=== PATIENT | female | born 1990 | race Caucasian/White ===

== ENCOUNTER → 2017-07-17 | Outpatient (CLI) | payer OTHER ==
[2017-07-17 17:28] LABS: ABSOLUTE BASOPHILS # (AUTO) 0.1 10^3/uL (0.0-0.2); ABSOLUTE EOSINOPHILS # (AUTO) 0.3 10^3/uL (0.0-0.6); ABSOLUTE LYMPHOCYTES (AUTO) 3.5 10^3/uL (0.5-4.7); ABSOLUTE MONOCYTES (AUTO) 0.5 10^3/uL (0.1-1.4); ABSOLUTE NEUT (AUTO) 3.3 10^3/uL (1.7-8.2); EOSINOPHILS % (AUTO) 3.7 % (0-6); HEMATOCRIT 38.4 % (36.0-47.0); HGB HCT DIFFERENCE 0.6; MEAN CORPUSCULAR HEMOGLOBIN 30.3 pg (27.0-33.4); MEAN CORPUSCULAR HGB CONC 33.8 g/dL (32.0-36.0); MEAN CORPUSCULAR VOLUME 90 fl (80-97); MONOCYTES % (AUTO) 6.1 % (3-13); RED BLOOD COUNT 4.28 10^6/uL (3.72-5.28); RED CELL DISTRIBUTION WIDTH 12.2 % (11.5-14.0); SEGMENTED NEUTROPHILS % (AUTO) 43.2 % (42-78); WHITE BLOOD COUNT 7.7 10^3/uL (4.0-10.5)
== END ==
LOC: OD 16:14
PROVIDERS: ATTEND Internal Medicine Pulmonary Disease
DX: J45.909 Unspecified asthma, uncomplicated (principal)
CPT/HCPCS: 36415; 82785; 85025

== ENCOUNTER 2017-10-21 19:51 | Emergency (ER) | payer OTHER ==
[2017-10-21] MEDS ORDERED: NORMAL SALINE 1000 ML 1,000 ML IV ONE ×2 (20:49→23:45)
[2017-10-21 21:27] LABS: ABSOLUTE BASOPHILS # (AUTO) 0.1 10^3/uL (0.0-0.2); ABSOLUTE EOSINOPHILS # (AUTO) 0.1 10^3/uL (0.0-0.6); ABSOLUTE MONOCYTES (AUTO) 0.7 10^3/uL (0.1-1.4); ABSOLUTE NEUT (AUTO) 6.3 10^3/uL (1.7-8.2); BASOPHILS % (AUTO) 0.5 % (0-2); EOSINOPHILS % (AUTO) 1.2 % (0-6); HEMATOCRIT 37.3 % (36.0-47.0); HEMOGLOBIN 12.3 g/dL (12.0-15.5); LYMPHOCYTES % (AUTO) 36.1 % (13-45); MEAN CORPUSCULAR HEMOGLOBIN 30.2 pg (27.0-33.4); MEAN CORPUSCULAR HGB CONC 32.9 g/dL (32.0-36.0); MEAN CORPUSCULAR VOLUME 92 fl (80-97); MONOCYTES % (AUTO) 6.1 % (3-13); PLATELET COUNT 308 10^3/uL (150-450); RED BLOOD COUNT 4.06 10^6/uL (3.72-5.28); RED CELL DISTRIBUTION WIDTH 13.3 % (11.5-14.0); SEGMENTED NEUTROPHILS % (AUTO) 56.1 % (42-78); TOTAL CELLS COUNTED % (AUTO) 100 %; WHITE BLOOD COUNT 11.2 10^3/uL (4.0-10.5)
[2017-10-21 21:40] LABS: INTERNATIONAL RATION (INR) 0.88; PROTHROMBIN TIME 12.5 SEC (11.4-15.4); VENOUS BLOOD BASE EXCESS 4.4 mmol/L; VENOUS BLOOD HCO3 28.7 mmol/L (20-32); VENOUS BLOOD PCO2 41.5 mmHg (35-63); VENOUS BLOOD PH 7.46 (7.30-7.42)
[2017-10-21 21:40] LABS: APPEARANCE,URINE CLEAR; BILIRUBIN,URINE NEGATIVE (NEGATIVE); COLOR,URINE STRAW; GLUCOSE, URINE NEGATIVE (NEGATIVE); KETONES,URINE NEGATIVE (NEGATIVE); LEUKOCYTE ESTERASE,URINE NEGATIVE (NEGATIVE); NITRITE,URINE NEGATIVE (NEGATIVE); PROTEIN,URINE NEGATIVE (NEGATIVE); URINE SPECIFIC GRAVITY 1.005; UROBILINOGEN,URINE NEGATIVE mg/dL (<2.0)
[2017-10-21 21:50] LABS: ALANINE AMINOTRANSFERASE 18 U/L (9-52); ALBUMIN 4.6 g/dL (3.5-5.0); ALKALINE PHOSPHATASE 58 U/L (38-126); ANION GAP 11 (5-19); ASPARTATE AMINO TRANSFERASE 20 U/L (14-36); BILIRUBIN,DIRECT 0.2 mg/dL (0.0-0.4); BILIRUBIN,TOTAL 0.2 mg/dL (0.2-1.3); BLOOD UREA NITROGEN 6 mg/dL (7-20); CALCIUM 9.6 mg/dL (8.4-10.2); CARBON DIOXIDE 29 mmol/L (22-30); CHLORIDE 99 mmol/L (98-107); GLUCOSE 97 mg/dL (75-110); SODIUM 138.7 mmol/L (137-145)
--- NOTE | 2017-10-21 22:00 | ER Document Report ---
ED General - General Chief Complaint: Flank Pain Stated Complaint: NAUSEA,VOMITING,KIDNEY PAIN Time Seen by Provider: 10/21/17 20:50 Notes: Patient is a 27-year-old female presents emergency department complaining of acute on chronic left flank pain is gotten worse since Thursday with associated nausea, vomiting, difficulty urinating, pyuria, dysuria and fever since Thursday. Patient states that she was diagnosed with pyelonephritis back in May and since then has been having chronic left flank pain. She followed up with the urologist on September [address] She followed up with him on October 14 complaining of she is having bladder fullness so they started her on Cipro and Flomax and told her that she has multiple stones in her right kidney and her left kidney. Patient has a substantial past medical history with ulcerative colitis, history of paroxysmal SVT, history of migraines, asthma, fibromyalgia, chronic back pain with spondylo-listhesis and radiculopathy, anxiety, depression, ADD Her urologist is with [facility] with Dr. Nely no primary care is with Dr. Ayala TRAVEL OUTSIDE OF THE [place] IN LAST 30 DAYS: No - Related Data Allergies/Adverse Reactions: ibuprofen [Ibuprofen] Allergy (Verified 08/20/17 09:14) Unknown reaction Penicillins Allergy (Verified 08/20/17 09:14) UNKNOWN metronidazole [From Flagyl] Adverse Reaction (Verified 08/20/17 09:14) Metronidazole HCl [From Flagyl] Adverse Reaction (Verified 08/20/17 09:14) Past Medical History - Social History Smoking Status: Unknown if Ever Smoked Family History: Reviewed & Not Pertinent Patient has suicidal ideation: No Patient has homicidal ideation: No - Past Medical History Cardiac Medical History: Reports: Hx Hypertension Denies: Hx Heart Attack Pulmonary Medical History: Reports: Hx Asthma - IN PAST NO PROBLEMS IN COUPLE OF YEARS PER PT Neurological Medical History: Reports: Hx Migraine. Denies: Hx Cerebrovascular Accident, Hx Seizures Renal/ Medical History: Denies: Hx Peritoneal Dialysis GI Medical History: Reports: Hx Ulcerative Colitis - Diagnostic data 16. Denies : Hx Hepatitis, Hx Hiatal Hernia, Hx Ulcer Psychiatric Medical History: Reports: Hx Attention Deficit Hyperactivity Disorder Infectious Medical History: Denies: Hx Hepatitis Past Surgical History: Reports: Hx Cardiac Surgery - ablasion. Denies: Hx Hysterectomy, Hx Mastectomy, Hx Open Heart Surgery, Hx Pacemaker Review of Systems - Review of Systems Constitutional: See HPI EENT: No symptoms reported Cardiovascular: No symptoms reported Respiratory: No symptoms reported Gastrointestinal: See HPI Genitourinary: See HPI Musculoskeletal: See HPI -: Yes All other systems reviewed and negative Physical Exam - Vital signs Vitals: Temp Pulse Resp BP Pulse Ox 98.6 F 114 H 20 138/64 H 99 10/21/17 19:52 10/21/17 19:52 10/21/17 19:52 10/21/17 19:52 10/21/17 19:52 - Notes Notes: PHYSICAL EXAM GENERAL: Alert, interacts well. LUNGS: Clear to auscultation bilaterally, no wheezes, rales, or rhonchi. No respiratory distress. HEART: Regular rate and rhythm. No murmurs, gallops, or rubs. ABDOMEN: Soft, nondistended, moderate discomfort to palpation the left lower quadrant. No guarding, rebound, or rigidity.. Bowel sounds present in all 4 quadrants. EXTREMITIES: Moves all 4 extremities spontaneously. No edema, radial and dorsalis pedis pulses 2/4 bilaterally. No cyanosis. Back: Significant CVA tenderness on the left. NEUROLOGICAL: Alert and oriented x4. Normal speech. PSYCH: Normal affect, normal mood. SKIN: Warm, dry, normal turgor. No rashes or lesions noted. Course - Re-evaluation Re-evalutation: 10/22/17 00:09 Patient is a 27-year-old female is hemodynamically stable, no acute distress and afebrile. Initial tachycardia is resolved after IV fluids. No evidence of leukocytosis or anemia. Chemistry stable without elevation in renal function. Urinalysis clean. CT the abdomen pelvis shows a 4 mm stone in the left kidney but evidence of a possible ureteral stone versus phlebolith in the left pelvis. Results discussed with urologist industrial relations director Dr. Gandhi who states he will follow -up with her in the morning in clinic keep her n.p.o. send a urine culture. Discussed results with patient is tolerating p.o. and feeling much better after pain medications here. She is declining any additional IV fluids as her home Flomax and home pain medications. Will discharge her home with Zofran and contact information to follow-up with Dr. Gandhi in the morning. Patient given strict return precautions and otherwise is stable for discharge - Vital Signs Vital signs: Temp Pulse Resp BP Pulse Ox 98.2 F 96 20 110/69 100 10/22/17 00:53 10/22/17 00:53 10/22/17 00:53 10/22/17 00:53 10/22/17 00:53 - Laboratory Result Diagrams: 10/21/17 21:00 10/21/17 21:00 Laboratory results interpreted by me: 10/21/17 10/21/17 10/21/17 21:00 21:00 21:00 WBC 11.2 H VBG pH 7.46 H BUN 6 L Creatinine 0.46 L - Diagnostic Test Radiology reviewed: Image reviewed, Reports reviewed Discharge - Discharge Clinical Impression: Kidney stones Condition: Good Disposition: HOME, SELF-CARE Additional Instructions: KIDNEY STONE: You are passing or have passed a kidney stone. These stones are usually due to increased calcium or uric acid concentrations in your urine. Stones within the kidney itself are not painful. The pain occurs as the stone leaves the kidney to pass down the long tube, called the ureter, leading to the bladder. If the stone is small, it will usually pass by itself. Most patients can pass the stone at home. You will usually receive medications for pain, nausea or vomiting, and sometimes a medication to assist in passing the kidney stone. However, if the pain is very severe or if vomiting prevents you from taking oral pain medications, you may need to return for further treatment. Drink three or four quarts of fluids per day. You will be given pain medication (if needed) and urine strainers. Strain all your urine to see if the stone passes. If your doctor has asked you to bring the stone in for analysis, return with the stone once it has passed. Return if pain or vomiting become severe, if you develop a high fever, if you are unable to pass your urine, or if other unusual symptoms occur. PAIN MEDICATION INJECTION: You have received an injection of a pain medication. You should experience significant pain relief within 45 minutes. This drug is a narcotic - - it will impair your judgement, slow your reaction time and make you sleepy ( as well as relieve your pain). Narcotics also can cause nausea. You should not drive, work with machinery, or perform any task requiring mental alertness until all effects of the medication are gone -- six to eight hours. Do not take any alcohol, or sedatives, and do not take any other medication without checking with your physician. ANTINAUSEA MEDICATION: You have been given a medication to suppress nausea and vomiting. This type of medication can be given as a shot, pill, or suppository. It will usually last for many hours. Pills and shots usually last six to eight hours, suppositories last about 12 hours. For the typical illness, only one or two doses of the medication may be necessary. Mild lightheadedness may occur. This type of medicine can cause drowsiness. Do not drive or operate dangerous machinery while under its influence. Do not mix with alcohol. See your doctor at once if you have muscle spasms or tightness, or uncontrollable motions (particularly of the neck, mouth, or jaw). Persistent vomiting or severe lightheadedness should also be evaluated by the physician. FLOMAX (tamsulosin): Flomax is a medicine that shrinks the prostate gland. It helps relieve symptoms of benign prostatic hypertrophy, such as frequent urination, weak stream, and inadequate emptying. It has been shown to dilate the ureter (tube leading from the kidney to the bladder) and help in passing kidney stones Flomax usually causes no side effects. You may notice slight tiredness and dizziness for a few days. Some patients develop nasal congestion. Rarely, impotence can occur. If the symptoms are bothersome and don't improve with continued use, call your doctor. Contact your doctor or return if you have fainting spells, severe weakness or dizziness, shortness of breath, or rash. FOLLOW-UP CARE: If you have been referred to a physician for follow-up care, call the physician s office for an appointment as you were instructed or within the next two days. If you experience worsening or a significant change in your symptoms, notify the physician immediately or return to the Emergency Department at any time for re-evaluation. Prescriptions: Ondansetron [Zofran Odt 4 mg Tablet] 1 - 2 tab PO Q4H PRN #15 tab.rapdis PRN Reason: For Nausea/Vomiting Referrals: NHUNG AYALA MD [Primary Care Provider] - Follow up as needed BRANT GANDHI II, MD [[facility]] - Follow up tomorrow (at 8am)
[2017-10-21] MEDS ORDERED: MORPHINE SULFATE 10 MG/ML INJ IV ONE (23:08)
--- NOTE | 2017-10-21 23:29 | RADIOLOGY REPORT (SQ) ---
EXAM DESCRIPTION: CT LTD RENAL STONE PROTOCOL ON COMPLETED DATE/TIME: 10/21/2017 10:45 pm REASON FOR STUDY: left flank pain, fever, h/o multiple stones COMPARISON: None. TECHNIQUE: CT scan of the abdomen and pelvis performed without intravenous or oral contrast. Images reviewed with lung, soft tissue, and bone windows. Reconstructed coronal and sagittal MPR images revi ewed. All images stored on PACS. All CT scanners at this facility use dose modulation, iterative reconstruction, and/or weight based d osing when appropriate to reduce radiation dose to as low as reasonably achievable (ALARA). [facility]: Dose Right [facility]: CareDose [facility]: Dose Right [facility]: Teradose 4D [facility]: Smart ComQi RADIATION DOSE: CT Rad equipment meets quality standard of care and radiation dose reduction techniq ues were employed. CTDIvol: 6.9 mGy. DLP: 340 mGy-cm.mGy. LIMITATIONS: None. FINDINGS: LOWER CHEST: No consolidation or pleural effusion. NON-CONTRASTED LIVER, SPLEEN, ADRENALS: Evaluation limited by lack of IV contrast. No identified sign ificant masses. PANCREAS: No peripancreatic inflammatory changes. GALLBLADDER: No identified stones by CT criteria. No inflammatory changes to suggest cholecystitis. RIGHT KIDNEY AND URETER: No significant calcifications. No hydronephrosis or hydroureter. LEFT KIDNEY AND URETER: Nonobstructing renal calculi measuring up to 4 mm. No hydronephrosis or hyd roureter. AORTA AND RETROPERITONEUM: No abdominal aortic aneurysm. No retroperitoneal masses or adenopathy. BOWEL AND PERITONEAL CAVITY: No dilated bowel loops or inflammatory changes. No free fluid. APPENDIX: Normal. PELVIS, BLADDER, AND ABDOMINAL WALL:The urinary bladder is distended. The uterus is present. There is a 2.6 cm cyst at the left ovary. No free fluid. Radiopaque ring is seen in the abdominal wall nielsen perior to the umbilicus. BONES: Bilateral pars defect at L5 with mild anterolisthesis of L5 on S1. IMPRESSION: Nonobstructing left nephrolithiasis. No hydronephrosis. Distended urinary bladder. 2.6 cm cyst at the left ovary. COMMENT: Quality ID # [id number]: Final reports with documentation of one or more dose reduction techniques (e.g., Automated exposure control, adjustment of the mA and/or kV according to patient size, use of iterative reconstruction technique) TECHNICAL DOCUMENTATION: JOB ID: [id number] [place]-[id number] 2010 [employer]- All Rights Reserved
[2017-10-21] MEDS ORDERED: ONDANSETRON HCL INJ/PF 4 MG/2 ML SDV IV ONE (23:36)
[2017-10-22 00:53] VITALS: BP 110/69
--- NOTE | 2017-10-22 07:48 | EKG REPORT ---
SEVERITY:- NORMAL ECG - SINUS RHYTHM : Confirmed by: Cristhian Durán MD 22-Oct-2017 07:48:08
== END 2017-10-22 00:54 | disposition home or self-care (01) ==
LOC: ER 19:51
DX: N20.0 Calculus of kidney (principal); R11.2 Nausea with vomiting, unspecified; I10 Essential (primary) hypertension; J45.909 Unspecified asthma, uncomplicated; Z88.0 Allergy status to penicillin; Z88.6 Allergy status to analgesic agent
CPT/HCPCS: 93005; 99285; 96361; 96374; 96375; 36415; 87040; 87086; 82962; 84703; 85025; 85610; 80053; 81001; 82803; 83605; 76380; 93010; J2270; J2405; J7030

== ENCOUNTER → 2018-01-12 | Outpatient (CLI) | payer OTHER ==
--- NOTE | 2018-01-12 09:01 | RADIOLOGY REPORT (SQ) ---
EXAM DESCRIPTION: COOKIE SWALLOW COMPLETED DATE/TIME: 01/12/2018 8:35 am REASON FOR STUDY: DYSPHAGIA CAUSING PULMONARY ASPIRATION W/SWALLOWING (R13.19) R13.19 OTHER DYSPHAG IA COMPARISON: None. TECHNIQUE: Videofluoroscopic swallowing examination was performed in conjunction with speech patholo gy. Videofluoroscopic imaging was obtained and reviewed and these are the findings: RADIATION DOSE: Fluoro time 1.28 minutes 1 images saved to PACS. LIMITATIONS: None FINDINGS: The patient was brought into the fluoro room and placed upright on a modified barium swall ow chair. The patient was then given multiple consistencies mixed with barium to swallow under live fluoroscopic video guidance. According to the Speech Pathologist there was no penetration or aspirat ion. Please refer to the speech pathology report for further details. IMPRESSION: NO EVIDENCE OF PENETRATION OR ASPIRATION.PLEASE SEE SPEECH PATHOLOGIST REPORT FOR OTHER FINDINGS AND RECOMMENDATIONS. COMMENT: None Quality ID [id number]: Final reports for procedures using fluoroscopy that document radiation exposure [place], or exposure time and number of fluorographic images (if radiation exposure indices are not avail able) TECHNICAL DOCUMENTATION: JOB ID: [id number] [employer]- All Rights Reserved Reading location - IP/workstation name: [email or web address]
--- NOTE | 2018-01-12 11:20 | ST Modified Barium Swallow ---
Recommendation - Recommendations Recommendations: No diet change recommendations, functional oral and pharyngeal swallowing skills for normal diet textures. Due to nature of globus sensation without pharyngeal residue present, may benefit from consult with sustain engineer. Medical Diagnoses - Medical Diagnoses Medical Diagnosis Description & ICD-10 Code(s): dysphagia R13.19, dysphagia R13.10 Other Medical Diagnoses/Co-Morbidities: per patient report: asthma, reflux, ulcerative colitis, gastritis, migraines, spinal disorders, heart problems. Patient stated that she had other health issues as well, but was unable to name all. ST Modified Barium Swallow - General Date: 01/12/18 Referring Physician: Dr. Navarrete Risks/Precautions: None Reason for Referral: rule out aspiration - History History obtained from: Patient -: Medical - The patient acted as her own historian this day. She stated that "for a while", she has been noticing feeling "choked" when eating, specifically notes difficulty with solids. She does say that she has dry mouth, possibly due to medications she is taking, and states that she has reflux but does not take medications for this. No recent pneumonia or weight loss reported. Medications: Patient listed medications, was unsure if she listed all: lyrica, gabapentin, diltiazem, nucynta, flovent, ventalin, spiriva Allergies: per patient report: ibuprofen, penicillin, strawberries, seafood - Functional Status Prior Functional Status: INDEPENDENT: feeding - independent Current Functional Limitations: feeding - globus sensation - Subjective Patient/caregiver goal(s): safe swallow Cognitive-Linguistic Function: WNL Speech Intelligibility: WNL Current Nutritional Means: PO Current PO diet: Regular Current symptoms: c/o Globus sensation Pain: Patient reports, 3/5 - throat pain, worse when swallowing. - Objective Assessment: Upright, Left Lateral - Food Trials Used Food trials used: Thin liquids, Pureed, Regular The patient: Was Able to Self Feed - Oral-Motor Skills Dentition: Full Laryngeal Function: Throat Clear - WNL, Volitional Swallow - WNL - Assessment Oral prep: Normal Labial closure: Adequate Leakage: None Mastication: Adequate Lingual Movement: Normal Oral stage: Normal for this Procedure - Pharyngeal Stage Initiation of Pharyngeal Stage Reflex: Normal Decreased laryngeal elevation: No Reduced Velopharyngeal Closure: no Reduced pressure generation: No reduced tongue-based retraction: No Pre-swallow pooling in valleculae: None Pre-Swallow pooling in pyriforms: None Reduced Thyro-Hyoid approximation: No Reduced epiglottic excursion: No Reduced pharyngeal peristalsis/contraction: No Multiple Swallows with: Cleared w/ Liquid Assist Post-swallow residulas vallecular: None Post-Swallow residuals in pyriforms: None Post-Swallow Residuals: tongue-base - mild Pharyngeal Stage Comments: Functional swallow skills seen. Mild residue on base of tongue, possibly due to dry mouth. Cleared easily with liquid wash. - Fall Risk Assessment Medications/Conditions that increase fall risks include: Antidepressants, sedatives, anti-arrhythmic, diuretic, benzodiazipenes, neuroleptics. BP regulation problems, cardiac problems, balance or gait deficits, neurological problems. Is patient considered at risk for falls: no Fall Risk Actions Taken: No action needed - Behavioral Observations During evaluation process patient: was pleasant, was cooperative, able to answer questions, provided medical history - Treatment / Educational Needs: Treatment/Education Needs: Treatment consisted of patient education on the role of the Speech Pathologist. Patient's plan of care and golas were communicated as well as scheduling and attendance policies. Recommendations for initial home program were shared. Patient demonstrated understanding and verbalized agreement. - Impression/Summary Laryngeal Penetration: No Tracheal Aspiration: no Patient presents with: Normal swallow at eval Risk of Aspiration: Minimal Evaluation and Findings: No oral or pharyngeal deficits seen for swallowing skills. Patient did comment on globus sensation with solid trials (pudding, jose e cracker), however, no residue was observed in pharynx. Patient also commented on increased throat pain during the swallow, especially with solids. No impact on function of the swallowing mechanism. - Recommendations NPO: no Solid diet recommendations: Regular Liquid Diet Modification: Thin Dysphagia therapy with WIND PLANT MANAGER: no Reflux Precautions: Taught to Patient Recommended techniques: Fully Upright During Meal, Alternate Bites/Sips Information, Precautions and Recommendations: Patient (Written), Patient (Verbal ) - Time Total Time: 30 - Plan of Care Strategies to optimize patient understanding include:: ongoing assessment of educational needs, implementation of educational strategies, and re-education. - - -: Thank you for the opportunity to work with this patient and his/her family. Should you have any questions about this patient's plan or progress, I can be reached at [phone]. Charge G Code? - - -: No
== END ==
LOC: RAD 07:37
PROVIDERS: ATTEND Internal Medicine Pulmonary Disease
DX: R13.19 Other dysphagia (principal)
CPT/HCPCS: 74230

== ENCOUNTER → 2018-03-13 | Outpatient (CLI) | payer OTHER ==
[2018-03-13 11:27] LABS: ABSOLUTE BASOPHILS # (AUTO) 0.1 10^3/uL (0.0-0.2); ABSOLUTE EOSINOPHILS # (AUTO) 0.9 10^3/uL (0.0-0.6); ABSOLUTE LYMPHOCYTES (AUTO) 2.9 10^3/uL (0.5-4.7); ABSOLUTE MONOCYTES (AUTO) 0.5 10^3/uL (0.1-1.4); BASOPHILS % (AUTO) 1.1 % (0-2); EOSINOPHILS % (AUTO) 10.6 % (0-6); HEMATOCRIT 38.6 % (36.0-47.0); LYMPHOCYTES % (AUTO) 34.6 % (13-45); MEAN CORPUSCULAR HEMOGLOBIN 29.7 pg (27.0-33.4); MEAN CORPUSCULAR HGB CONC 33.7 g/dL (32.0-36.0); MEAN CORPUSCULAR VOLUME 88 fl (80-97); PLATELET COUNT 359 10^3/uL (150-450); RED BLOOD COUNT 4.37 10^6/uL (3.72-5.28); RED CELL DISTRIBUTION WIDTH 12.7 % (11.5-14.0); SEGMENTED NEUTROPHILS % (AUTO) 47.7 % (42-78); TOTAL CELLS COUNTED % (AUTO) 100 %; WHITE BLOOD COUNT 8.5 10^3/uL (4.0-10.5)
[2018-03-13 11:34] LABS: HEMATOCRIT 38.6 % (36.0-47.0); MEAN CORPUSCULAR HEMOGLOBIN 29.7 pg (27.0-33.4); MEAN CORPUSCULAR HGB CONC 33.7 g/dL (32.0-36.0); MEAN CORPUSCULAR VOLUME 88 fl (80-97); PLATELET COUNT 359 10^3/uL (150-450); RED BLOOD COUNT 4.37 10^6/uL (3.72-5.28); RED CELL DISTRIBUTION WIDTH 12.7 % (11.5-14.0); WHITE BLOOD COUNT 8.5 10^3/uL (4.0-10.5)
[2018-03-13 11:35] LABS: ABSOLUTE BASOPHILS # (AUTO) 0.1 10^3/uL (0.0-0.2); ABSOLUTE EOSINOPHILS # (AUTO) 0.9 10^3/uL (0.0-0.6); ABSOLUTE LYMPHOCYTES (AUTO) 2.9 10^3/uL (0.5-4.7); ABSOLUTE MONOCYTES (AUTO) 0.5 10^3/uL (0.1-1.4); BASOPHILS % (AUTO) 1.1 % (0-2); EOSINOPHILS % (AUTO) 10.6 % (0-6); HEMATOCRIT 38.6 % (36.0-47.0); LYMPHOCYTES % (AUTO) 34.6 % (13-45); MEAN CORPUSCULAR HEMOGLOBIN 29.7 pg (27.0-33.4); MEAN CORPUSCULAR HGB CONC 33.7 g/dL (32.0-36.0); MEAN CORPUSCULAR VOLUME 88 fl (80-97); PLATELET COUNT 359 10^3/uL (150-450); RED BLOOD COUNT 4.37 10^6/uL (3.72-5.28); RED CELL DISTRIBUTION WIDTH 12.7 % (11.5-14.0); SEGMENTED NEUTROPHILS % (AUTO) 47.7 % (42-78); TOTAL CELLS COUNTED % (AUTO) 100 %; WHITE BLOOD COUNT 8.5 10^3/uL (4.0-10.5)
[2018-03-13 11:45] LABS: ALANINE AMINOTRANSFERASE 26 U/L (9-52); ALBUMIN 4.4 g/dL (3.5-5.0); ALKALINE PHOSPHATASE 65 U/L (38-126); ANION GAP 10 (5-19); ASPARTATE AMINO TRANSFERASE 26 U/L (14-36); BILIRUBIN,DIRECT 0.2 mg/dL (0.0-0.4); BILIRUBIN,TOTAL 0.2 mg/dL (0.2-1.3); BLOOD UREA NITROGEN 9 mg/dL (7-20); CALCIUM 9.9 mg/dL (8.4-10.2); CARBON DIOXIDE 27 mmol/L (22-30); CHLORIDE 105 mmol/L (98-107); GLUCOSE 86 mg/dL (75-110); POTASSIUM 4.6 mmol/L (3.6-5.0); SODIUM 142.2 mmol/L (137-145); TOTAL PROTEIN 7.1 g/dL (6.3-8.2)
[2018-03-13 11:57] LABS: ANION GAP 12 (5-19); BLOOD UREA NITROGEN 10 mg/dL (7-20); CALCIUM 9.9 mg/dL (8.4-10.2); CARBON DIOXIDE 26 mmol/L (22-30); CHLORIDE 105 mmol/L (98-107); GLUCOSE 86 mg/dL (75-110); POTASSIUM 4.6 mmol/L (3.6-5.0); SODIUM 142.8 mmol/L (137-145)
[2018-03-13 11:58] LABS: ALANINE AMINOTRANSFERASE 27 U/L (9-52); ALBUMIN 4.5 g/dL (3.5-5.0); ALKALINE PHOSPHATASE 66 U/L (38-126); ANION GAP 12 (5-19); ASPARTATE AMINO TRANSFERASE 25 U/L (14-36); BILIRUBIN,DIRECT 0.2 mg/dL (0.0-0.4); BILIRUBIN,TOTAL 0.2 mg/dL (0.2-1.3); BLOOD UREA NITROGEN 9 mg/dL (7-20); CALCIUM 9.8 mg/dL (8.4-10.2); CARBON DIOXIDE 28 mmol/L (22-30); CHLORIDE 103 mmol/L (98-107); GLUCOSE 87 mg/dL (75-110); POTASSIUM 4.6 mmol/L (3.6-5.0); TOTAL PROTEIN 7.3 g/dL (6.3-8.2)
[2018-03-13 12:01] LABS: FREE T4 (FREE THYROXINE) 0.77 ng/dL (0.78-2.19)
[2018-03-13 12:09] LABS: FREE T3 4.27 pg/mL (2.77-5.27); FREE T4 (FREE THYROXINE) 0.8 ng/dL (0.78-2.19)
[2018-03-13 12:15] LABS: THYROID STIMULATING HORMONE 0.15 uIU/mL (0.47-4.68)
[2018-03-13 12:23] LABS: THYROID STIMULATING HORMONE 0.16 uIU/mL (0.47-4.68)
== END ==
LOC: OD 09:55
PROVIDERS: ATTEND Internal Medicine Pulmonary Disease
DX: F33.1 Major depressive disorder, recurrent, moderate (principal); J45.20 Mild intermittent asthma, uncomplicated; R51 Headache; Z79.899 Other long term (current) drug therapy
CPT/HCPCS: 36415; 80048; 80053; 83036; 83525; 84439; 84443; 84481; 85025; 85027

== ENCOUNTER → 2018-04-14 | Outpatient (CLI) | payer OTHER | LOC: LAB 11:12 | PROVIDERS: ATTEND Internal Medicine Pulmonary Disease | DX: J30.89 Other allergic rhinitis (principal) | CPT/HCPCS: 87070; 87077; 87186; 87205 ==

== ENCOUNTER 2018-05-01 14:20 | Emergency (ER) | payer OTHER ==
[2018-05-01] MEDS ORDERED: VANCOMYCIN HCL INJ 1000 MG VIAL IV ONE (14:40)
[2018-05-01] MEDS ORDERED: CEFTRIAXONE 1 GM/D5W RTU 1 GM/50 ML RTUPB IV ONE (14:41)
--- NOTE | 2018-05-01 14:45 | ER Document Report ---
ED Medical Screen (RME) - General Chief Complaint: Altered Mental Status Stated Complaint: VOMITING/WEAKNESS/FEVER Time Seen by Provider: 05/01/18 14:34 TRAVEL OUTSIDE OF THE [place] IN LAST 30 DAYS: No - HPI Notes: 05/01/18 14:43 According to the patient has been treated for pneumonia that has grown out staph aureus on the sputum culture was initially on amoxicillin then switched to Levaquin for the last 5 days to take Levaquin this morning. Patient coming in due to peak flow being less than 100 at home. Also the states patient is more lethargic altered. Patient is answering questions however very slowly and triage. Reviewed patient's past history showing sputum culture with staph aureus sensitive to ceftriaxone and vancomycin will start the patient on these medications here in triage will order septic workup along with a urine drug screen otherwise patient is moving all 4 extremities - Related Data Allergies/Adverse Reactions: ibuprofen [Ibuprofen] Allergy (Verified 05/01/18 14:26) Unknown reaction Penicillins Allergy (Verified 05/01/18 14:26) UNKNOWN metronidazole [From Flagyl] Adverse Reaction (Verified 05/01/18 14:26) Metronidazole HCl [From Flagyl] Adverse Reaction (Verified 05/01/18 14:26) Past Medical History - Social History Chew tobacco use (# tins/day): No Frequency of alcohol use: None Drug Abuse: None - Past Medical History Cardiac Medical History: Reports: Hx Hypertension Denies: Hx Heart Attack Pulmonary Medical History: Reports: Hx Asthma - IN PAST NO PROBLEMS IN COUPLE OF YEARS PER PT Neurological Medical History: Reports: Hx Migraine. Denies: Hx Cerebrovascular Accident, Hx Seizures Renal/ Medical History: Denies: Hx Peritoneal Dialysis GI Medical History: Reports: Hx Ulcerative Colitis - Diagnostic data 16. Denies : Hx Hepatitis, Hx Hiatal Hernia, Hx Ulcer Psychiatric Medical History: Reports: Hx Attention Deficit Hyperactivity Disorder Infectious Medical History: Denies: Hx Hepatitis Past Surgical History: Reports: Hx Cardiac Surgery - ablasion, Hx Kidney (Renal Surgery) - kidney stones removed and stent placed, Hx Tonsillectomy - and adenods, Hx Urinary Tract Surgery. Denies: Hx Hysterectomy, Hx Mastectomy, Hx Open Heart Surgery, Hx Pacemaker Review of Systems - Review of Systems Constitutional: Other - Week altered Physical Exam - Vital signs Vitals: Temp Pulse Resp BP Pulse Ox 98.4 F 121 H 18 145/87 H 93 07/21/18 14:29 05/01/18 14:29 05/01/18 14:29 05/01/18 14:29 05/01/18 14:29 - Respiratory Respiratory status: No respiratory distress Chest status: Nontender Breath sounds: Normal Chest palpation: Normal Course - Vital Signs Vital signs: Temp Pulse Resp BP Pulse Ox 98.4 F 121 H 18 145/87 H 93 05/01/18 14:29 05/01/18 14:29 05/01/18 14:29 05/01/18 14:29 05/01/18 14:29 Doctor's Discharge - Discharge Referrals: PREM MONROE MD [Primary Care Provider] - Follow up as needed
[2018-05-01] MEDS: NORMAL SALINE 1000 ML 1,000 ML IV PRN ×2 (15:01→16:39)
[2018-05-01 15:18] LABS: VENOUS BLOOD BASE EXCESS 5.2 mmol/L; VENOUS BLOOD HCO3 30.2 mmol/L (20-32); VENOUS BLOOD PCO2 45.7 mmHg (35-63); VENOUS BLOOD PH 7.44 (7.30-7.42)
[2018-05-01 15:22] LABS: ABSOLUTE BASOPHILS # (AUTO) 0.1 10^3/uL (0.0-0.2); ABSOLUTE LYMPHOCYTES (AUTO) 2.7 10^3/uL (0.5-4.7); ABSOLUTE MONOCYTES (AUTO) 0.4 10^3/uL (0.1-1.4); BASOPHILS % (AUTO) 0.6 % (0-2); EOSINOPHILS % (AUTO) 0.4 % (0-6); HEMATOCRIT 38.2 % (36.0-47.0); HEMOGLOBIN 12.9 g/dL (12.0-15.5); LYMPHOCYTES % (AUTO) 29.3 % (13-45); MEAN CORPUSCULAR HEMOGLOBIN 28.7 pg (27.0-33.4); MEAN CORPUSCULAR HGB CONC 33.7 g/dL (32.0-36.0); MEAN CORPUSCULAR VOLUME 85 fl (80-97); MONOCYTES % (AUTO) 4.8 % (3-13); PLATELET COUNT 445 10^3/uL (150-450); RED BLOOD COUNT 4.49 10^6/uL (3.72-5.28); RED CELL DISTRIBUTION WIDTH 14.4 % (11.5-14.0); SEGMENTED NEUTROPHILS % (AUTO) 64.9 % (42-78); TOTAL CELLS COUNTED % (AUTO) 100 %; WHITE BLOOD COUNT 9.3 10^3/uL (4.0-10.5)
[2018-05-01 15:25] LABS: PROTHROMBIN TIME 12.6 SEC (11.4-15.4)
[2018-05-01] MEDS ORDERED: CEFTRIAXONE SODIUM 1,000 MG in DEXTROSE 5%-WATER 50 ML IV ONE ×2 (15:30→15:45)
[2018-05-01 15:31] LABS: ALANINE AMINOTRANSFERASE 27 U/L (9-52); ALBUMIN 4.8 g/dL (3.5-5.0); ALKALINE PHOSPHATASE 57 U/L (38-126); ANION GAP 14 (5-19); ASPARTATE AMINO TRANSFERASE 22 U/L (14-36); BILIRUBIN,DIRECT 0.3 mg/dL (0.0-0.4); BILIRUBIN,TOTAL 0.4 mg/dL (0.2-1.3); BLOOD UREA NITROGEN 9 mg/dL (7-20); CALCIUM 9.9 mg/dL (8.4-10.2); CARBON DIOXIDE 27 mmol/L (22-30); CHLORIDE 101 mmol/L (98-107); GLUCOSE 99 mg/dL (75-110); POTASSIUM 4.6 mmol/L (3.6-5.0); SODIUM 142.3 mmol/L (137-145); TOTAL PROTEIN 8.1 g/dL (6.3-8.2)
[2018-05-01] MEDS ORDERED: ONDANSETRON HCL INJ/PF 4 MG/2 ML SDV IV ONE (15:38)
--- NOTE | 2018-05-01 15:46 | RADIOLOGY REPORT (SQ) ---
EXAM DESCRIPTION: CHEST SINGLE VIEW COMPLETED DATE/TIME: 05/01/2018 3:31 pm REASON FOR STUDY: sob tachy hx of pna COMPARISON: Chest x-ray 04/28/2013. EXAM PARAMETERS: NUMBER OF VIEWS: One view. TECHNIQUE: Single frontal radiographic view of the chest acquired. RADIATION DOSE: NA LIMITATIONS: None. FINDINGS: LUNGS AND PLEURA: Subsegmental atelectasis at the left lung base. No consolidation, pleur al effusion or pneumothorax. MEDIASTINUM AND HILAR STRUCTURES: No masses. Contour normal. HEART AND VASCULAR STRUCTURES: Heart normal in size. Normal vasculature. BONES: No acute findings. HARDWARE: None in the chest. IMPRESSION: Subsegmental atelectasis at the left lung base. TECHNICAL DOCUMENTATION: JOB ID: [id number] 2010 [employer]- All Rights Reserved Reading location - IP/workstation name: [email or web address]
[2018-05-01] MEDS ORDERED: IPRATROPIUM/ALBUTEROL 0.5-2.5 MG/3 ML AMPUL NEB ONE ×2 (16:11→16:20)
--- NOTE | 2018-05-01 16:12 | ER Document Report ---
ED General - General Chief Complaint: Altered Mental Status Stated Complaint: VOMITING/WEAKNESS/FEVER Time Seen by Provider: 05/01/18 14:34 TRAVEL OUTSIDE OF THE [place] IN LAST 30 DAYS: No - HPI Notes: 28-year-old female with multiple medical problems including ulcerative colitis, eosinophilic asthma, SVT, interstitial cystitis, mitral valve prolapse, chronic pain followed by pain management presents with multiple complaints. She was seen by her game artist, Dr. Navarrete, 2 weeks ago. She was started on amoxicillin for suspected pneumonia for 5 days. After no improvement, she was changed to Levaquin and has been taking this for 5 days. She had a sputum culture growing staph aureus with normal respiratory suzie. Cultures were sensitive to Levaquin so this was continued. Patient states for the past 2 days she has felt worse with a low-grade fever up to 100 and cough productive of dark yellow sputum. She has had chest pain and increasing shortness of breath with generalized weakness and terrible body aches. She states her peak flow is normally 250-300 and is down to 100. She has been on 2 prednisone tapers over the past 3 months and is currently taking 10 mg. Patient reports a history of sepsis is concerned she has the same. She reports vomiting several times a day with diarrhea yesterday. She feels weak, confused, and dizzy. - Related Data Allergies/Adverse Reactions: ibuprofen [Ibuprofen] Allergy (Verified 05/01/18 14:26) Unknown reaction Penicillins Allergy (Verified 05/01/18 14:26) UNKNOWN metronidazole [From Flagyl] Adverse Reaction (Verified 05/01/18 14:26) Metronidazole HCl [From Flagyl] Adverse Reaction (Verified 05/01/18 14:26) Past Medical History - Social History Smoking Status: Unknown if Ever Smoked Chew tobacco use (# tins/day): No Frequency of alcohol use: None Drug Abuse: None Family History: Reviewed & Not Pertinent Patient has suicidal ideation: No Patient has homicidal ideation: No - Past Medical History Cardiac Medical History: Reports: Hx Hypertension Denies: Hx Heart Attack Pulmonary Medical History: Reports: Hx Asthma - IN PAST NO PROBLEMS IN COUPLE OF YEARS PER PT Neurological Medical History: Reports: Hx Migraine. Denies: Hx Cerebrovascular Accident, Hx Seizures Renal/ Medical History: Denies: Hx Peritoneal Dialysis GI Medical History: Reports: Hx Ulcerative Colitis - Diagnostic data 16. Denies : Hx Hepatitis, Hx Hiatal Hernia, Hx Ulcer Psychiatric Medical History: Reports: Hx Attention Deficit Hyperactivity Disorder Infectious Medical History: Denies: Hx Hepatitis Past Surgical History: Reports: Hx Cardiac Surgery - ablasion, Hx Kidney (Renal Surgery) - kidney stones removed and stent placed, Hx Tonsillectomy - and adenods, Hx Urinary Tract Surgery. Denies: Hx Hysterectomy, Hx Mastectomy, Hx Open Heart Surgery, Hx Pacemaker Review of Systems - Review of Systems Notes: Constitutional: Positive for fever, chills, fatigue, lightheadedness. HENT: Negative for sore throat. Eyes: Negative for visual changes. Cardiovascular: Positive for chest pain and palpitations. Respiratory: Positive for shortness of breath, cough, congestion. Gastrointestinal: Positive for abdominal pain, vomiting or diarrhea. Genitourinary: Positive for dysuria. Musculoskeletal: Positive for back pain and diffuse body aches. Skin: Negative for rash. Neurological: Positive for headaches. Negative for focal numbness or weakness. 10 point ROS negative except as marked above and in HPI. Physical Exam - Vital signs Vitals: Temp Pulse Resp BP Pulse Ox 98.4 F 121 H 18 145/87 H 93 05/01/18 14:29 05/01/18 14:29 05/01/18 14:29 05/01/18 14:29 05/01/18 14:29 - Notes Notes: PHYSICAL EXAMINATION: GENERAL: Well-appearing, well-nourished and in no acute distress. HEAD: Atraumatic, normocephalic. EYES: Pupils equal round and reactive to light, extraocular movements intact, conjunctiva are normal. ENT: nares patent, oropharynx clear without exudates. Moist mucous membranes. NECK: Normal range of motion, supple without lymphadenopathy LUNGS: Breath sounds clear to auscultation bilaterally and equal. Few scattered wheezes. No rales or rhonchi. Decreased inspiratory effort without distress. HEART: Tachycardic rate and normal rhythm, no chest wall tenderness ABDOMEN: Soft, diffuse mild tenderness, normoactive bowel sounds. No guarding, no rebound. No masses appreciated. EXTREMITIES: Normal range of motion, no pitting or edema. No cyanosis. Patient has pain to palpation of all muscles NEUROLOGICAL: Cranial nerves grossly intact. Normal speech, normal gait. Normal sensory and motor exams. PSYCH: Flat affect, depressed mood SKIN: Warm, Dry, normal turgor, no rashes or lesions noted. Course - Re-evaluation Re-evalutation: 05/01/18 16:13 Patient tachycardic on prior visits. she is on Cardizem for sinus tachycardia and SVT. No hypoxia. Labs unremarkable. Nurse called into room for increased shortness of breath. Patient sitting up in bed with forced stridorous breath sounds. She has 100% sats with completely clear breath sounds. Requesting oxygen. Will give neb. 05/01/18 17:25 Patient is requesting something for her "nerves" as the DuoNeb has caused increasing tachycardia and anxiety. She normally takes Xopenex at home. She states she is due for her normal dose of Valium. Will give Ativan and discharged home as workup completely unremarkable. Advised close follow-up with pulmonary for further treatment and evaluation. Advised no changes in current treatment regimen at this time. At this time will discharge with return precautions and follow-up recommendations. Verbal discharge instructions given a the bedside and opportunity for questions given. Medication warnings reviewed. Patient is in agreement with this plan and has verbalized understanding of return precautions and the need for primary care follow-up in the next 24-72 hours. - Vital Signs Vital signs: Temp Pulse Resp BP Pulse Ox 98.4 F 121 H 18 145/87 H 93 05/01/18 14:29 05/01/18 14:29 05/01/18 14:29 05/01/18 14:29 05/01/18 14:29 - Laboratory Result Diagrams: 05/01/18 14:55 05/01/18 14:55 Laboratory results interpreted by me: 05/01/18 05/01/18 14:55 14:55 RDW 14.4 H VBG pH 7.44 H Discharge - Discharge Clinical Impression: Sinus tachycardia Dyspnea Qualifiers: Dyspnea type: unspecified Qualified Code(s): R06.00 - Dyspnea, unspecified Condition: Good Disposition: HOME, SELF-CARE Additional Instructions: Follow-up with your game artist for further treatment and evaluation. Continue all previously prescribed medications. Return for any worsening or concerning symptoms. SHORTNESS OF BREATH OR DYSPNEA: You were evaluated for shortness of breath, or dyspnea. Dyspnea has many causes, and some are more serious than others. Sometimes it's impossible to diagnose the cause of dyspnea with the tests that are available on an emergency basis. Based on our evaluation today, you do not need hospitalization now. We found no evidence of pneumonia, collapsed lung, blood clots in the lung, tumors , or heart failure. Causes of non-specific dyspnea can include asthma or bronchospasm, hyperventilation, emotional distress, heart disease, emphysema, fibrosis of the lung, and stiffness of the chest wall. In healthy individuals with a single episode, it's sometimes reasonable to do nothing but wait to see if the problem occurs again. Additional tests used to evaluate dyspnea can include cardiac stress testing, echocardiography, pulmonary function testing, CAT scan of the chest, bronchoscopy or pulmonary biopsy. Return if shortness of breath persists or worsens, or if you develop chest pain, fever, cough, confusion, or fainting. NORMAL EXAM AND WORKUP: At this time, your examination and workup show no significant abnormality. No significant abnormal physical findings were noted. All laboratory, EKG, and imaging (x-ray, CT scans, ultrasound) studies that were ordered show no significant abnormality. Although your examination and all studies that were ordered showed no significant abnormal finding, there are no examinations and no studies that are 100% accurate. There is always the possibility that some abnormality could exist and not be detected with physical examination or within the limits and capabilities of laboratory and other studies. You should return or follow up as you were instructed on your visit today for further evaluation if your symptoms do not resolve. FOLLOW-UP CARE: If you have been referred to a physician for follow-up care, call the physician s office for an appointment as you were instructed or within the next two days. If you experience worsening or a significant change in your symptoms, notify the physician immediately or return to the Emergency Department at any time for re-evaluation. Referrals: PREM NAVARRETE MD [ACTIVE STAFF] - Follow up in 3-5 days
[2018-05-01] MEDS ORDERED: LORAZEPAM INJ 2 MG/1 ML VIAL IV ONE (17:25)
[2018-05-01 17:54] LABS: APPEARANCE,URINE CLEAR; BILIRUBIN,URINE NEGATIVE (NEGATIVE); COLOR,URINE STRAW; GLUCOSE, URINE NEGATIVE (NEGATIVE); KETONES,URINE NEGATIVE (NEGATIVE); LEUKOCYTE ESTERASE,URINE NEGATIVE (NEGATIVE); NITRITE,URINE NEGATIVE (NEGATIVE); PROTEIN,URINE NEGATIVE (NEGATIVE); URINE SPECIFIC GRAVITY 1.005; UROBILINOGEN,URINE NEGATIVE mg/dL (<2.0)
[2018-05-01 18:04] VITALS: BP 128/86
[2018-05-01 18:12] LABS: URINE AMPHETAMINES SCREEN UNCONFIRMED POSITIVE; URINE BARBITURATES SCREEN NEGATIVE; URINE BENZODIAZEPINES SCREEN UNCONFIRMED POSITIVE; URINE COCAINE SCREEN NEGATIVE; URINE MARIJUANA (THC) SCREEN NEGATIVE; URINE METHADONE SCREEN NEGATIVE; URINE PHENCYCLIDINE SCREEN NEGATIVE
--- NOTE | 2018-05-01 21:47 | EKG REPORT ---
SEVERITY:- OTHERWISE NORMAL ECG - SINUS TACHYCARDIA : Confirmed by: Marlene Grossman 01-May-2018 21:46:21
== END 2018-05-01 18:13 | disposition home or self-care (01) ==
LOC: ER 14:20
DX: R00.0 Tachycardia, unspecified (principal); R06.00 Dyspnea, unspecified; R41.82 Altered mental status, unspecified; R53.1 Weakness; R50.9 Fever, unspecified; I10 Essential (primary) hypertension; Z88.0 Allergy status to penicillin; Z88.6 Allergy status to analgesic agent; Z87.442 Personal history of urinary calculi
CPT/HCPCS: 93005; 94640; 99285; 96361; 96375; 96365; 36415; 87040; 87086; 82962; 85025; 85610; 80053; 81001; 80307; 82803; 83605; 71045; 93010; J2060; J2405; J7030; J3370; J7620

== ENCOUNTER 2018-08-25 14:48 | Emergency (ER) | payer OTHER ==
[2018-08-25] MEDS ORDERED: NORMAL SALINE 1000 ML 1,000 ML IV PRN (15:29)
[2018-08-25] MEDS ORDERED: MORPHINE SULFATE 10 MG/ML INJ IV ONE (15:31)
[2018-08-25] MEDS ORDERED: ONDANSETRON HCL INJ/PF 4 MG/2 ML SDV IV ONE (15:31)
--- NOTE | 2018-08-25 15:37 | ER Document Report ---
ED General - General Chief Complaint: Flank Pain Stated Complaint: FLANK PAIN Time Seen by Provider: 08/25/18 15:28 TRAVEL OUTSIDE OF THE [place] IN LAST 30 DAYS: No - HPI Notes: Patient is a 28-year-old female with a history of ulcerative colitis, eosinophilic asthma, SVT, interstitial cystitis, mitral valve prolapse, chronic pain, urosepsis secondary to stone 1 year ago who presents to the ED complaining of hematuria, dysuria, left flank pain, lower abdominal pain over the last week. Her primary care provider diagnosed her with a possible stone based on her symptoms and she found out 2 days ago that she had a bladder infection and was started on Bactrim at that time. Patient states that her symptoms have not been improving. Patient states she was hospitalized for sepsis due to urinary infection with a stone in the past. Patient states that she is able to eat and drink, but does have a decreased p.o. intake due to associated nausea and intermittent episodes of vomiting. Patient states that her flank pain does come and go in waves. She has not had any other vaginal discharge, odor, or bleeding. She has no concern of STD, STI, or . Denies any headache, fever, neck pain, changes in vision/speech/mentation/ hearing, URI, sore throat, chest pain, palpitations, syncope, cough, shortness of breath, wheeze, dyspnea, loss of control of bowel or bladder, numbness/ tingling, saddle anesthesia, muscle paralysis/weakness, or rash. - Related Data Allergies/Adverse Reactions: ibuprofen [Ibuprofen] Allergy (Verified 08/25/18 14:50) Unknown reaction Penicillins Allergy (Verified 08/25/18 14:50) UNKNOWN metronidazole [From Flagyl] Adverse Reaction (Verified 08/25/18 14:50) Metronidazole HCl [From Flagyl] Adverse Reaction (Verified 08/25/18 14:50) Past Medical History - Social History Smoking Status: Unknown if Ever Smoked Family History: Reviewed & Not Pertinent - Past Medical History Cardiac Medical History: Reports: Hx Hypertension Denies: Hx Heart Attack Pulmonary Medical History: Reports: Hx Asthma - IN PAST NO PROBLEMS IN COUPLE OF YEARS PER PT Neurological Medical History: Reports: Hx Migraine. Denies: Hx Cerebrovascular Accident, Hx Seizures Renal/ Medical History: Denies: Hx Peritoneal Dialysis GI Medical History: Reports: Hx Ulcerative Colitis - Diagnostic data 16. Denies : Hx Hepatitis, Hx Hiatal Hernia, Hx Ulcer Psychiatric Medical History: Reports: Hx Attention Deficit Hyperactivity Disorder Infectious Medical History: Denies: Hx Hepatitis Past Surgical History: Reports: Hx Cardiac Surgery - ablasion, Hx Kidney (Renal Surgery) - kidney stones removed and stent placed, Hx Tonsillectomy - and adenods, Hx Urinary Tract Surgery. Denies: Hx Hysterectomy, Hx Mastectomy, Hx Open Heart Surgery, Hx Pacemaker Review of Systems - Review of Systems -: Yes All other systems reviewed and negative Physical Exam - Vital signs Vitals: Temp Pulse Resp BP Pulse Ox 97.6 F 96 20 136/87 H 96 08/25/18 14:52 08/25/18 14:52 08/25/18 14:52 08/25/18 14:52 08/25/18 14:52 - Notes Notes: PHYSICAL EXAMINATION: GENERAL: well-nourished and in no acute resp distress. Pt does appear to be uncomfortable and in discomfort. HEAD: Atraumatic, normocephalic. EYES: Pupils equal round and reactive to light, extraocular movements intact, sclera anicteric, conjunctiva are normal. ENT: Nares patent and without discharge. oropharynx clear without exudates. No tonsilar hypertrophy or erythema. Moist mucous membranes. NECK: Normal range of motion, supple without lymphadenopathy LUNGS: Breath sounds clear to auscultation bilaterally and equal. No wheezes rales or rhonchi. HEART: Regular rate and rhythm without murmurs, rubs, gallops. ABDOMEN: Soft, nondistended abdomen. No guarding, no rebound. No masses appreciated. Normal bowel sounds present. No CVA tenderness bilaterally. + suprapubic tenderness. : No inguinal adenopathy. External genitalia without erythema, lesions, or masses. Vaginal mucosa pink. Cervix parous, pink, and without discharge. Uterus is smooth. No adnexal tenderness. No CMT. Musculoskeletal: FROM to passive/active. Strength 5+/5. Extremities: No cyanosis, clubbing, or edema b/l. Peripheral pulses 2+. Capillary refill less than 3 seconds. NEUROLOGICAL: Normal speech, normal gait. PSYCH: Normal mood, normal affect. SKIN: Warm, Dry, normal turgor, no rashes or lesions noted. Course - Re-evaluation Re-evalutation: 08/25/18 19:34 Reviewed labs/case with Dr. Shields. We will recheck CBC and Lactic and if improved pt can be discharged. Pt is feeling better than she was and is no longer in as significant pain. Work-up otherwise unremarkable. Pt is non- toxic appearing. 08/25/18 20:40 Patient is an afebrile, well-hydrated, 28-year-old female who presents to the ED with lower abdominal pain unspecified and probable UTI. Vitals are acceptable without any significant tachycardia, tachypnea, or hypoxia. PE is otherwise unremarkable. CBC and lactic acid were much improved after recheck. Patient is nontoxic-appearing and is tolerating p.o. without difficulty. CMP, lipase, hCG, wet mount, chlamydia/gonorrhea otherwise unremarkable. CT scan was unremarkable. See UA. Patient received fluids, pain medicine as well as nausea medicine while in the emergency department. Patient states that she is feeling better at this time. She also received Rocephin IV. Urine culture is pending. She is to continue her Bactrim as directed by her PCM and may call in 2 days for her urine culture results. No further labs or imaging warranted at this time. Low suspicion/risk for acute appendicitis, bowel obstruction, acute cholecystitis, acute cholangitis, perforated diverticulitis, incarcerated hernia , pancreatitis, perforated ulcer, peritonitis, sepsis, pelvic inflammatory disease, ectopic , tubo-ovarian abscess, ovarian torsion, or other systemic emergent condition at this time. Patient is aware that her condition can change from initial presentation and she needs to monitor symptoms closely and seek medical attention if any acute changes. Rx for zofran. Conservative measures otherwise for symptoms. Recheck with your PCM in 2-3 days. Return to the ED with any worsening/concerning symptoms otherwise as reviewed in discharge. Patient is in agreement. - Vital Signs Vital signs: Temp Pulse Resp BP Pulse Ox 97.6 F 96 20 136/87 H 96 08/25/18 14:52 08/25/18 14:52 08/25/18 14:52 08/25/18 14:52 08/25/18 14:52 - Laboratory Result Diagrams: 08/25/18 19:40 08/25/18 16:20 Laboratory results interpreted by me: 08/25/18 08/25/18 08/25/18 16:20 16:20 16:20 WBC 17.4 H RDW 14.7 H Plt Count 471 H Seg Neutrophils % 87.6 H Lymphocytes % 10.2 L Monocytes % 1.7 L Absolute Neutrophils 15.3 H Glucose 112 H Lactic Acid 2.6 H AST 54 H Urine Nitrite Ur Leukocyte Esterase 08/25/18 08/25/18 17:08 19:40 WBC 15.0 H RDW 15.0 H Plt Count Seg Neutrophils % 79.9 H Lymphocytes % Monocytes % Absolute Neutrophils 11.9 H Glucose Lactic Acid AST Urine Nitrite POSITIVE H Ur Leukocyte Esterase TRACE H Procedures - Pelvic Exam Pelvic exam Time completed: 18:40 Cultures obtained: Yes Wet prep obtained: Yes Bimanual exam performed: Yes - negative Witnessed by: female RN Sun Discharge - Discharge Clinical Impression: Lower abdominal pain, unspecified Condition: Stable Disposition: HOME, SELF-CARE Instructions: Abdominal Pain ([facility]), Antinausea Medication ([facility]) Additional Instructions: Maintain adequate fluid and food intake Mcpherson diet ([employer] Bananas, rice, apples, toast, etc Zofran as needed tylenol if needed Monitor for any worsening symptoms Make sure you are staying hydrated enough to urinate and have normal BM's Recheck with your PCM in 2-3 days Consider consult with Gastroenterology for ongoing/worsening symptoms Return to the ED with any worsening symptoms and/or development of fever, headache, chest pain, palpitations, syncope, shortness of breath, trouble breathing, abdominal pain, n/v/d, blood in stool/urine, weakness, or other worsening symptoms that are concerning to you. Prescriptions: Ondansetron [Zofran Odt 4 mg Tablet] 1 - 2 tab PO Q4H PRN #15 tab.rapdis PRN Reason: For Nausea/Vomiting Forms: Elevated Blood Pressure Referrals: TAMRA SZYMANSKI MD [ACTIVE STAFF] - Follow up as needed
[2018-08-25 16:31] LABS: ABSOLUTE BASOPHILS # (AUTO) 0.1 10^3/uL (0.0-0.2); ABSOLUTE LYMPHOCYTES (AUTO) 1.8 10^3/uL (0.5-4.7); ABSOLUTE MONOCYTES (AUTO) 0.3 10^3/uL (0.1-1.4); ABSOLUTE NEUT (AUTO) 15.3 10^3/uL (1.7-8.2); BASOPHILS % (AUTO) 0.3 % (0-2); EOSINOPHILS % (AUTO) 0.2 % (0-6); HEMATOCRIT 40.2 % (36.0-47.0); HEMOGLOBIN 13.3 g/dL (12.0-15.5); LYMPHOCYTES % (AUTO) 10.2 % (13-45); MEAN CORPUSCULAR HEMOGLOBIN 28.5 pg (27.0-33.4); MEAN CORPUSCULAR HGB CONC 32.9 g/dL (32.0-36.0); MEAN CORPUSCULAR VOLUME 87 fl (80-97); MONOCYTES % (AUTO) 1.7 % (3-13); PLATELET COUNT 471 10^3/uL (150-450); RED BLOOD COUNT 4.65 10^6/uL (3.72-5.28); RED CELL DISTRIBUTION WIDTH 14.7 % (11.5-14.0); SEGMENTED NEUTROPHILS % (AUTO) 87.6 % (42-78); TOTAL CELLS COUNTED % (AUTO) 100 %; WHITE BLOOD COUNT 17.4 10^3/uL (4.0-10.5)
[2018-08-25] MEDS ORDERED: CEFTRIAXONE 1 GM/D5W RTU 1 GM/50 ML RTUPB IV ONE (17:09)
[2018-08-25 17:11] LABS: ALANINE AMINOTRANSFERASE 19 U/L (9-52); ALBUMIN 4.6 g/dL (3.5-5.0); ALKALINE PHOSPHATASE 79 U/L (38-126); ANION GAP 11 (5-19); ASPARTATE AMINO TRANSFERASE 54 U/L (14-36); BILIRUBIN,DIRECT 0.4 mg/dL (0.0-0.4); BILIRUBIN,TOTAL 0.5 mg/dL (0.2-1.3); BLOOD UREA NITROGEN 9 mg/dL (7-20); CALCIUM 9.7 mg/dL (8.4-10.2); CARBON DIOXIDE 28 mmol/L (22-30); CHLORIDE 105 mmol/L (98-107); GLUCOSE 112 mg/dL (75-110); LIPASE 124.9 U/L (23-300); POTASSIUM 4.8 mmol/L (3.6-5.0); SODIUM 143.5 mmol/L (137-145); TOTAL PROTEIN 7.8 g/dL (6.3-8.2)
[2018-08-25 17:33] LABS: APPEARANCE,URINE CLEAR; BILIRUBIN,URINE NEGATIVE (NEGATIVE); COLOR,URINE YELLOW; GLUCOSE, URINE NEGATIVE (NEGATIVE); KETONES,URINE NEGATIVE (NEGATIVE); LEUKOCYTE ESTERASE,URINE TRACE (NEGATIVE); NITRITE,URINE POSITIVE (NEGATIVE); PROTEIN,URINE NEGATIVE (NEGATIVE); URINE SPECIFIC GRAVITY 1.006; UROBILINOGEN,URINE NEGATIVE mg/dL (<2.0)
--- NOTE | 2018-08-25 18:18 | RADIOLOGY REPORT (SQ) ---
EXAM DESCRIPTION: CT ABD/PELVIS WITH IV ONLY COMPLETED DATE/TIME: 08/25/2018 5:58 pm REASON FOR STUDY: Left flank pain, hematuria COMPARISON: 10/21/2017 TECHNIQUE: CT scan of the abdomen and pelvis performed using helical scanning technique with dynamic intravenous contrast injection. No oral contrast. Images reviewed with lung, soft tissue, and bone windows. Reconstructed coronal and sagittal MPR images reviewed. Delayed images for evaluation of the urinary system also acquired. All images stored on PACS. All CT scanners at this facility use dose modulation, iterative reconstruction, and/or weight based d osing when appropriate to reduce radiation dose to as low as reasonably achievable (ALARA). [facility]: Dose Right [facility]: CareDose [facility]: Dose Right [facility]: Teradose 4D [facility]: Sirigen CONTRAST TYPE AND DOSE: contrast/concentration: Isovue 350.00 mg/ml; Total Contrast Delivered: 100.0 ml; Total Saline Delivered: 62.2 ml RENAL FUNCTION: None required. The patient is less than 50 years old. RADIATION DOSE: CT Rad equipment meets quality standard of care and radiation dose reduction techniq ues were employed. CTDIvol: 13.7 - 17.7 mGy. DLP: 1816 mGy-cm.. LIMITATIONS: None. FINDINGS: LOWER CHEST: No significant findings. No nodules or infiltrates. LIVER: Normal size. No masses. No dilated ducts. SPLEEN: Normal size. No focal lesions. PANCREAS: No masses. No significant calcifications. No adjacent inflammation or peripancreatic fluid collections. Pancreatic duct not dilated. GALLBLADDER: No identified stones by CT criteria. No inflammatory changes to suggest cholecystitis. ADRENAL GLANDS: No significant masses or asymmetry. RIGHT KIDNEY AND URETER: No solid masses. No significant calcifications. No hydronephrosis or hyd roureter. LEFT KIDNEY AND URETER: No solid masses. No significant calcifications. No hydronephrosis or hydr oureter. AORTA AND VESSELS: No aneurysm. No dissection. Renal arteries, SMA, celiac without stenosis. RETROPERITONEUM: No retroperitoneal adenopathy, hemorrhage or masses. BOWEL AND PERITONEAL CAVITY: No masses or inflammatory changes. No free fluid or peritoneal masses. APPENDIX: Normal. PELVIS: No mass. No free fluid. Normal bladder. ABDOMINAL WALL: No masses. No hernias. BONES: No significant or acute findings. OTHER: No other significant finding. IMPRESSION: NO SIGNIFICANT OR ACUTE FINDING IN THE ABDOMEN OR PELVIS ON CT SCAN WITH IV CONTRAST. TECHNICAL DOCUMENTATION: JOB ID: [id number] Quality ID # [id number]: Final reports with documentation of one or more dose reduction techniques (e.g., Au tomated exposure control, adjustment of the mA and/or kV according to patient size, use of iterative reconstruction technique) 2010 [employer]- All Rights Reserved Reading location - IP/workstation name: [email or web address]
[2018-08-25 18:51] LABS: EPITHELIALS (WET MOUNT) 3+ EPITHELIALS SEEN; RBCS (WET MOUNT) NO RBCS SEEN; T.VAGINALIS (WET MOUNT) NO TRICHOMONAS SEEN; WBCS (WET MOUNT) RARE WBCS SEEN; YEAST (WET MOUNT) NO YEAST SEEN
[2018-08-25 19:49] LABS: ABSOLUTE BASOPHILS # (AUTO) 0.1 10^3/uL (0.0-0.2); ABSOLUTE LYMPHOCYTES (AUTO) 2.2 10^3/uL (0.5-4.7); ABSOLUTE MONOCYTES (AUTO) 0.7 10^3/uL (0.1-1.4); ABSOLUTE NEUT (AUTO) 11.9 10^3/uL (1.7-8.2); BASOPHILS % (AUTO) 0.6 % (0-2); HEMATOCRIT 37.5 % (36.0-47.0); HEMOGLOBIN 12.4 g/dL (12.0-15.5); MEAN CORPUSCULAR HEMOGLOBIN 28.7 pg (27.0-33.4); MEAN CORPUSCULAR VOLUME 87 fl (80-97); MONOCYTES % (AUTO) 4.5 % (3-13); PLATELET COUNT 434 10^3/uL (150-450); RED BLOOD COUNT 4.31 10^6/uL (3.72-5.28); SEGMENTED NEUTROPHILS % (AUTO) 79.9 % (42-78); TOTAL CELLS COUNTED % (AUTO) 100 %
[2018-08-25 20:16] LABS: CHLAM PCR NOT DETECTED (NOT DETECT); GON PCR NOT DETECTED (NOT DETECT)
[2018-08-25 21:06] VITALS: BP 131/74
== END 2018-08-25 21:05 | disposition home or self-care (01) ==
LOC: ER 14:48
DX: N30.91 Cystitis, unspecified with hematuria (principal); R10.30 Lower abdominal pain, unspecified; R10.9 Unspecified abdominal pain; J45.909 Unspecified asthma, uncomplicated; R30.0 Dysuria; I10 Essential (primary) hypertension; Z87.19 Personal history of other diseases of the digestive system; Z88.6 Allergy status to analgesic agent; Z88.0 Allergy status to penicillin; Z87.442 Personal history of urinary calculi
CPT/HCPCS: 99284; 96361; 96375; 96365; 36415; 87086; 87210; 83605; 83690; 84703; 85025; 80053; 81001; 87491; 87591; 74177; J2270; J2405; J7030; J0696